=== PATIENT | male | born 1990 | race Caucasian/White ===

== ENCOUNTER 2020-07-02 13:06 | Emergency (ER) | payer OTHER ==
[~2020-07-02] VITALS: Ht 177.8 cm; Wt 77.1 kg
[2020-07-02] MEDS ORDERED: NORCO 5-325 TA1 EAC2 PO (15:33)
[2020-07-02] MEDS ORDERED: KEFLEX500 M1 PO (15:33)
[2020-07-02 16:39] VITALS: BP 117/54
== END 2020-07-02 16:40 | disposition home or self-care (01) ==
LOC: M.ERS 13:06
DX: S90.552A Superficial foreign body, left ankle, initial encounter (principal); W22.8XXA Striking against or struck by other objects, initial encounter; Y93.89 Activity, other specified; Y92.89 Other specified places as the place of occurrence of the external cause; Y99.8 Other external cause status